=== PATIENT | female | born 1995 | race Caucasian/White ===

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

== ENCOUNTER 2017-01-27 19:10 | Emergency (ER) | payer SELFPAY ==
[~2017-01-27] VITALS: Ht 152.4 cm; Wt 78.0 kg
[~2017-01-27 19:10] MED LIST changes: +FERR325T18 PO; -FERR325T20 PO
[2017-01-27] MEDS ORDERED: SODIUM CHLORIDE FLUSH 10ML SYR IVF ONE (19:30)
[2017-01-27] MEDS ORDERED: ONDANSETRON 2MG/ML, 2ML IVPush ONE (19:30)
[2017-01-27] MEDS ORDERED: MORPHINE SULFATE 4 MG/ML, 1ML IVPush PRN (19:30)
[2017-01-27 19:47] LABS: HEMATOCRIT 37.2 % (34.6-47.8); HEMOGLOBIN 11.7 g/dL (11.7-16.4); WHITE BLOOD COUNT 6.6 x10^3/uL (4.5-13.2)
[2017-01-27 19:56] LABS: BLOOD UREA NITROGEN 8 mg/dL (7-18)
[2017-01-27 20:02] LABS: IS PT STATUS REG ER OR PRE ER? YES
[2017-01-27] MEDS ORDERED: KETOROLAC 30 MG/1 ML IVPush ONE (20:30)
[2017-01-27] MEDS ORDERED: ENOXAPARIN 60 MG/0.6 ML ONE (20:41)
[2017-01-27] MEDS ORDERED: ENOXAPARIN 80 MG/0.8 ML ONE (20:52)
[2017-01-27] MEDS ORDERED: KETOROLAC 30 MG/1 ML IM ONE (21:00)
[2017-01-27] MEDS ORDERED: ENOXAPARIN 80 MG/0.8 ML SQ ONE (21:30)
[2017-01-27 21:40] VITALS: BP 109/62
== END 2017-01-27 21:42 | disposition home or self-care (01) ==
LOC: ED 21:33
DX: R07.89 Other chest pain (principal); G43.909 Migraine, unspecified, not intractable, without status migrainosus
CPT/HCPCS: 36415; 71010; 80048; 82040; 83880; 84484; 84703; 85025; 85610; 96372; 99285; J1650

== ENCOUNTER 2017-05-29 16:30 | Emergency (ER) | payer OTHER ==
[~2017-05-29] VITALS: Ht 152.4 cm; Wt 76.9 kg
[~2017-05-29 16:30] MED LIST changes: +WARF-36 PO; -WARF5TAB7 PO
[2017-05-29 16:32] VITALS: BP 130/80
[2017-05-29] MEDS ORDERED: DIAZEPAM 5 MG TABLET PO ONE ×2 (17:30→18:00)
[2017-05-29] MEDS ORDERED: PROMETHAZINE 25 MG/ML, 1ML IM ONE (17:30)
[2017-05-29] MEDS ORDERED: DIPHENHYDRAMINE 50 MG/ML, 1ML IVPush ONE (17:30)
[2017-05-29] MEDS ORDERED: PROMETHAZINE 25 MG/ML, 1ML ONE (17:46)
[2017-05-29] MEDS ORDERED: DIAZEPAM 5 MG TABLET ONE (17:46)
[2017-05-29] MEDS ORDERED: CYCL-259 PO (17:57)
[2017-05-29] MEDS ORDERED: WARF-36 PO (17:57)
[2017-05-29] MEDS ORDERED: PROCHLORPERAZINE 5 MG/ML, 2ML IVPush ONE (18:00)
[2017-05-29] MEDS ORDERED: SODIUM CHLORIDE 0.9% 1,000ML IVBOLUS ONE (18:00)
[2017-05-29 18:23] LABS: INTERNATIONAL NORMALIZED RATIO 1.17 (0.93-1.1)
[2017-05-29] MEDS ORDERED: SODIUM CHLORIDE FLUSH 10ML SYR IVF ONE (18:30)
== END 2017-05-29 20:24 | disposition home or self-care (01) ==
LOC: ED 19:15
DX: G44.219 Episodic tension-type headache, not intractable (principal); D68.61 Antiphospholipid syndrome; G43.909 Migraine, unspecified, not intractable, without status migrainosus; J45.909 Unspecified asthma, uncomplicated; Z86.718 Personal history of other venous thrombosis and embolism
CPT/HCPCS: 36415; 85610; 96372; 99283; J2550

== ENCOUNTER 2017-06-20 16:25 | Emergency (ER) | payer OTHER ==
[~2017-06-20] VITALS: Ht 152.4 cm; Wt 76.2 kg
[~2017-06-20 16:25] MED LIST changes: +CYCL-259 PO; +WARF7.5T46 PO; -WARF7.5T6 PO
[2017-06-20] MEDS ORDERED: SODIUM CHLORIDE FLUSH 10ML SYR IVF ONE (17:00)
[2017-06-20] MEDS ORDERED: SODIUM CHLORIDE 0.9% 1,000ML IVBOLUS ONE (17:00)
[2017-06-20 17:17] LABS: BASOPHILS # (AUTO) 0.03 x10^3/uL (0-0.3); BASOPHILS % (AUTO) 1 % (0-1); EOSINOPHILS # (AUTO) 0.13 x10^3/uL (0-0.8); EOSINOPHILS % (AUTO) 2 % (1-7); LYMPHOCYTES # (AUTO) 1.85 x10^3/uL (1-6.1); LYMPHOCYTES % (AUTO) 29 % (22-44); MD NO; MEAN CORPUSCULAR HEMOGLOBIN 19.8 pg (27.0-34.8); MEAN CORPUSCULAR HGB CONC 30.8 g/dL (32.4-35.8); MEAN CORPUSCULAR VOLUME 64.3 fL (80-100); MEAN PLATELET VOLUME 9.2 fL (7.4-10.4); MONOCYTES # (AUTO) 0.54 x10^3/uL (0-1.4); MONOCYTES % (AUTO) 9 % (2-9); NEUTROPHILS # (AUTO) 3.85 x10^3/uL (1.8-8.0); NEUTROPHILS % (AUTO) 60 % (42-75); PLATELET COUNT 201 x10^3/uL (130-400); RED BLOOD COUNT 4.48 x10^6/uL (3.82-5.3); RED CELL DISTRIBUTION WIDTH 19.8 % (9.6-15.2)
[2017-06-20 17:27] LABS: INTERNATIONAL NORMALIZED RATIO 1.6 (0.93-1.1); PROTHROMBIN TIME 16.5 Seconds (9.6-11.5)
[2017-06-20 17:31] LABS: ALANINE AMINOTRANSFERASE 34 U/L (12-78); ALBUMIN 3.8 g/dL (3.4-5.0); ANION GAP 7 mmol/L (5-15); CHLORIDE 107 mmol/L (98-107)
[2017-06-20 17:35] LABS: ALKALINE PHOSPHATASE 71 U/L (45-117); BILIRUBIN,TOTAL 0.4 mg/dL (0.2-1.0); TOTAL PROTEIN 8.1 g/dL (6.4-8.2); TROPONIN I < 0.015 ng/mL (0.000-0.045)
[2017-06-20] MEDS ORDERED: OMNIPAQUE 350 MG/ML, 100ML BOTTLE ONE (18:14)
[2017-06-20 19:18] VITALS: BP 105/69
== END 2017-06-20 19:44 | disposition home or self-care (01) ==
LOC: ED 17:42
DX: R07.89 Other chest pain (principal); I10 Essential (primary) hypertension; E11.9 Type 2 diabetes mellitus without complications; J45.909 Unspecified asthma, uncomplicated; Z79.01 Long term (current) use of anticoagulants; Z86.718 Personal history of other venous thrombosis and embolism
CPT/HCPCS: 36415; 71275; 80053; 83880; 84484; 84703; 85025; 85610; 85730; 93005; 99285; J7030; Q9967; 96360

== ENCOUNTER 2017-12-15 15:53 | Emergency (ER) | payer OTHER ==
[~2017-12-15] VITALS: Ht 152.4 cm; Wt 72.0 kg
[2017-12-15 16:27] LABS: MEAN CORPUSCULAR HEMOGLOBIN 18.4 pg (27.0-34.8); MEAN CORPUSCULAR HGB CONC 30.2 g/dL (32.4-35.8); MEAN CORPUSCULAR VOLUME 60.8 fL (80-100); MEAN PLATELET VOLUME 10.3 fL (7.4-10.4); PLATELET COUNT 186 x10^3/uL (130-400); RED BLOOD COUNT 4.74 x10^6/uL (3.82-5.3); RED CELL DISTRIBUTION WIDTH 21.4 % (9.6-15.2)
[2017-12-15] MEDS ORDERED: ASPIRIN 81 MG TABLET CHEW ONE (16:28)
[2017-12-15] MEDS ORDERED: HYDROcodone/APAP 5/325 TABLET ONE (16:29)
[2017-12-15] MEDS ORDERED: ASPIRIN 81 MG TABLET CHEW PO ONE (16:30)
[2017-12-15] MEDS ORDERED: HYDROcodone/APAP 5/325 TABLET PO ONE (16:30)
[2017-12-15 16:32] LABS: INTERNATIONAL NORMALIZED RATIO 1.39 (0.93-1.1); PROTHROMBIN TIME 14.2 Seconds (9.6-11.5)
[2017-12-15 16:36] LABS: ALBUMIN 4.2 g/dL (3.4-5.0); ANION GAP 8 mmol/L (5-15); CALCIUM 8.7 mg/dL (8.5-10.1); CHLORIDE 110 mmol/L (98-107); CREATININE 0.62 mg/dL (0.55-1.02)
[2017-12-15 16:40] LABS: TROPONIN I < 0.015 ng/mL (0.000-0.045)
[2017-12-15 16:54] LABS: ANISOCYTOSIS 1+; BASOPHILS # (AUTO) 0.04 x10^3/uL (0-0.3); BASOPHILS % (AUTO) 1 % (0-1); EOSINOPHILS % (AUTO) 3 % (1-7); HYPOCHROMIA 1+; LYMPHOCYTES # (AUTO) 2.02 x10^3/uL (1-6.1); LYMPHOCYTES % (AUTO) 29 % (22-44); MD MORPH REVIEW ONLY; MICROCYTOSIS 1+; MONOCYTES # (AUTO) 0.37 x10^3/uL (0-1.4); MONOCYTES % (AUTO) 5 % (2-9); NEUTROPHILS # (AUTO) 4.36 x10^3/uL (1.8-8.0); NEUTROPHILS % (AUTO) 62 % (42-75); OVALOCYTES 1+; POLYCHROMASIA 1+
[2017-12-15 16:55] LABS: <PLATELET ESTIMATE> ADEQUATE; LARGE PLATELETS 1+
[2017-12-15 17:25] VITALS: BP 116/68
== END 2017-12-15 18:36 | disposition home or self-care (01) ==
LOC: ED 16:00
DX: R07.2 Precordial pain (principal); I10 Essential (primary) hypertension; E11.9 Type 2 diabetes mellitus without complications; G43.909 Migraine, unspecified, not intractable, without status migrainosus; Z86.718 Personal history of other venous thrombosis and embolism
CPT/HCPCS: 36415; 80048; 82040; 83880; 84484; 85025; 85379; 85610; 93005; 99285

== ENCOUNTER 2018-02-09 06:23 | Emergency (ER) | payer OTHER ==
[~2018-02-09] VITALS: Ht 152.4 cm; Wt 68.6 kg
[~2018-02-09 06:23] MED LIST changes: +WARF2.5T32 PO; -WARF2.5T73 PO
[2018-02-09] MEDS ORDERED: HYDROcodone/APAP 5/325 TABLET ONE (07:00)
[2018-02-09] MEDS ORDERED: ONDANSETRON ODT 4 MG ONE (07:00)
[2018-02-09] MEDS ORDERED: ONDANSETRON ODT 4 MG PO ONE (07:00)
[2018-02-09] MEDS ORDERED: HYDROcodone/APAP 5/325 TABLET PO ONE (07:00)
[2018-02-09 07:13] LABS: MEAN CORPUSCULAR HEMOGLOBIN 20.8 pg (27.0-34.8); MEAN CORPUSCULAR HGB CONC 31.1 g/dL (32.4-35.8); MEAN CORPUSCULAR VOLUME 66.8 fL (80-100); MEAN PLATELET VOLUME 8.2 fL (7.4-10.4); PLATELET COUNT 256 x10^3/uL (130-400); RED CELL DISTRIBUTION WIDTH 30.2 % (9.6-15.2)
[2018-02-09 07:24] LABS: ALBUMIN 3.7 g/dL (3.4-5.0); ANION GAP 8 mmol/L (5-15); CALCIUM 9.1 mg/dL (8.5-10.1); CHLORIDE 102 mmol/L (98-107)
[2018-02-09 07:25] LABS: MICROSCOPIC NOT IND
[2018-02-09 07:27] LABS: CULTURE INDICATED? NO
[2018-02-09 07:28] LABS: INTERNATIONAL NORMALIZED RATIO 1.26 (0.93-1.1); PROTHROMBIN TIME 13.2 Seconds (9.6-11.5)
[2018-02-09 07:29] LABS: MD YES
[2018-02-09 07:30] LABS: ALANINE AMINOTRANSFERASE 23 U/L (12-78); ALKALINE PHOSPHATASE 86 U/L (45-117); BILIRUBIN,TOTAL 0.6 mg/dL (0.2-1.0); CREATININE 0.57 mg/dL (0.55-1.02); TOTAL PROTEIN 8.5 g/dL (6.4-8.2)
[2018-02-09 07:32] LABS: BASOS% (MANUAL) 1 % (0-1); LYMPH#(MANUAL) 1.25 x10^3/uL (1-6.1); LYMPHS% (MANUAL) 13 % (22-44); MONOS% (MANUAL) 1 % (2-9); SEG#(MANUAL) 8.16 x10^3/uL (1.8-8); SEGS% (MANUAL) 85 % (42-75)
[2018-02-09 07:33] LABS: <PLATELET ESTIMATE> ADEQUATE; <PLT MORPHOLOGY> NORMAL PLT MORPH; ANISOCYTOSIS 1+; HYPOCHROMIA 1+; MICROCYTOSIS 2+; OVALOCYTES 1+; POLYCHROMASIA 1+
[2018-02-09 08:39] VITALS: BP 112/82
== END 2018-02-09 08:50 | disposition home or self-care (01) ==
LOC: ED 07:32
DX: N83.292 Other ovarian cyst, left side (principal); N83.291 Other ovarian cyst, right side; R11.2 Nausea with vomiting, unspecified; E11.9 Type 2 diabetes mellitus without complications; I10 Essential (primary) hypertension; G43.909 Migraine, unspecified, not intractable, without status migrainosus; J45.909 Unspecified asthma, uncomplicated; Z86.718 Personal history of other venous thrombosis and embolism
CPT/HCPCS: 36415; 76700; 76830; 80053; 81003; 83690; 84703; 85025; 85610; 99284; Q0162

== ENCOUNTER 2018-07-26 14:28 | Emergency (ER) | payer SELFPAY ==
[~2018-07-26] VITALS: Ht 152.4 cm; Wt 78.7 kg
[2018-07-26 15:15] LABS: INTERNATIONAL NORMALIZED RATIO 1.89 (0.93-1.1); PROTHROMBIN TIME 19.4 Seconds (9.6-11.5)
[2018-07-26 15:16] LABS: MEAN CORPUSCULAR HEMOGLOBIN 20.9 pg (27.0-34.8); MEAN CORPUSCULAR HGB CONC 30.7 g/dL (32.4-35.8); MEAN CORPUSCULAR VOLUME 68.2 fL (80-100); MEAN PLATELET VOLUME 9.2 fL (7.4-10.4); PLATELET COUNT 270 x10^3/uL (130-400); RED BLOOD COUNT 5.49 x10^6/uL (3.82-5.3); RED CELL DISTRIBUTION WIDTH 20.6 % (9.6-15.2)
[2018-07-26 15:17] LABS: ALANINE AMINOTRANSFERASE 30 U/L (12-78); ANION GAP 8 mmol/L (5-15); CALCIUM 8.6 mg/dL (8.5-10.1); CHLORIDE 107 mmol/L (98-107); CREATININE 0.68 mg/dL (0.55-1.02)
[2018-07-26 15:22] LABS: ALKALINE PHOSPHATASE 69 U/L (45-117); BILIRUBIN,TOTAL 0.5 mg/dL (0.2-1.0); FREE T4 (FREE THYROXINE) 0.97 ng/dL (0.76-1.46); TROPONIN I < 0.015 ng/mL (0.000-0.045)
[2018-07-26 16:12] LABS: MD YES
[2018-07-26 16:24] LABS: EOS#(MANUAL) 0.06 x10^3/uL (0.0-0.4); EOS% (MANUAL) 1 % (1-7); LYMPH#(MANUAL) 2.05 x10^3/uL (1-3.4); LYMPHS% (MANUAL) 33 % (22-44); MONOS% (MANUAL) 8 % (2-9); REACTIVE LYMPHS # (MANUAL) 0.25 x10^3/uL (0-0); REACTIVE LYMPHS % (MANUAL) 4 % (0-0); SEG#(MANUAL) 3.35 x10^3/uL (1.8-6.8); SEGS% (MANUAL) 54 % (42-75)
[2018-07-26 16:25] LABS: <PLATELET ESTIMATE> ADEQUATE; ANISOCYTOSIS 1+; HYPOCHROMIA 1+; LARGE PLATELETS 1+; MICROCYTOSIS 2+; POLYCHROMASIA 1+
[2018-07-26 16:27] LABS: OVALOCYTES 1+
--- NOTE | 2018-07-26 18:11 | NUR ---
patient arrives with feeling like her heart is racing since last wednesday. she has no cardiac histry. denies hypertion. she has antiphospholipid syndrome and takes warfain. patient is in bed, on monitor, rails up.
[2018-07-26 18:34] VITALS: BP 128/78
--- NOTE | 2018-07-26 18:34 | NUR ---
patient to be discharged. she is aox4, here driving. states feeling improved. discharge teaching reviewed.
== END 2018-07-26 18:53 | disposition home or self-care (01) ==
LOC: ED 18:47
DX: F41.1 Generalized anxiety disorder (principal); R00.2 Palpitations; E11.9 Type 2 diabetes mellitus without complications; I10 Essential (primary) hypertension; D68.61 Antiphospholipid syndrome; Z86.718 Personal history of other venous thrombosis and embolism; Z90.89 Acquired absence of other organs
CPT/HCPCS: 36415; 71045; 80053; 84439; 84443; 84484; 84703; 85025; 85610; 93005; 99284

== ENCOUNTER 2019-08-06 10:04 | Emergency (ER) | payer OTHER ==
[~2019-08-06] VITALS: Ht 152.4 cm; Wt 86.6 kg
--- NOTE | 2019-08-06 10:50 | NUR ---
THIS IS A 24 YO FEMALE WHO PRESENTS TO THE ER C/O LLQ PAIN X 5 DAYS WITH NAUSEA. PT DENIES ANY VOMITING OR DIARRHEA. PT ALSO C/O LEFT SHOULDER PAIN WITH MOVEMENT. ZACHARY WALLACE HAS BEEN TO BEDSIDE FOR EVAL. PT AO X 4. SKIN WARM AND DRY. RESP EVEN AND UNLABORED. CALL LIGHT WITHIN REACH.
[2019-08-06] MEDS ORDERED: ONDANSETRON 2MG/ML, 2ML IVPush ONE (11:00)
[2019-08-06] MEDS ORDERED: MORPHINE SULFATE 4 MG/ML, 1ML IVPush PRN (11:00)
[2019-08-06] MEDS ORDERED: SODIUM CHLORIDE FLUSH 10ML SYR IVF ONE (11:00)
--- NOTE | 2019-08-06 11:00 | NUR ---
PT TO US AT THIS TIME VIA SONA.
[2019-08-06 11:04] LABS: BASOPHILS # (AUTO) 0.03 x10^3/uL (0-0.1); BASOPHILS % (AUTO) 0 % (0-1); EOSINOPHILS # (AUTO) 0.14 x10^3/uL (0-0.4); EOSINOPHILS % (AUTO) 2 % (1-7); LYMPHOCYTES # (AUTO) 2.04 x10^3/uL (1-3.4); LYMPHOCYTES % (AUTO) 28 % (22-44); MD NO; MEAN CORPUSCULAR HGB CONC 31.7 g/dL (32.4-35.8); MEAN CORPUSCULAR VOLUME 72.6 fL (80-100); MEAN PLATELET VOLUME 10.6 fL (7.4-10.4); MONOCYTES # (AUTO) 0.39 x10^3/uL (0.2-0.8); MONOCYTES % (AUTO) 5 % (2-9); NEUTROPHILS # (AUTO) 4.66 x10^3/uL (1.8-6.8); NEUTROPHILS % (AUTO) 64 % (42-75); PLATELET COUNT 239 x10^3/uL (130-400); RED BLOOD COUNT 5.63 x10^6/uL (3.82-5.3); RED CELL DISTRIBUTION WIDTH 19.7 % (9.6-15.2)
[2019-08-06] MEDS ORDERED: ONDANSETRON 2MG/ML, 2ML ONE (11:11)
[2019-08-06] MEDS ORDERED: MORPHINE SULFATE 4 MG/ML, 1ML ONE (11:11)
[2019-08-06 11:12] LABS: INTERNATIONAL NORMALIZED RATIO 1.1 (0.93-1.1); PROTHROMBIN TIME 11.7 Seconds (9.6-11.5)
[2019-08-06 11:15] LABS: ALBUMIN 3.8 g/dL (3.4-5.0); ANION GAP 11 mmol/L (5-15); CALCIUM 9.1 mg/dL (8.5-10.1); CHLORIDE 110 mmol/L (98-107); CREATININE 0.64 mg/dL (0.55-1.02)
--- NOTE | 2019-08-06 11:29 | NUR ---
PT MEDICATED ORDERED FOR 09/24 ABD PAIN. PT AWARE WE NEED URINE SAMPLE. PT STATES SHE CANNOT GO AT THIS TIME. WILL WAIT FOR IVF TO INFUSE AND ATTEMPT AFTER THAT. AT BEDSIDE. PT ON CONT BP AND SPO2 MONITORS. CALL LIGHT WITHIN REACH. WILL CONT TO MONITOR PT.
[2019-08-06] MEDS ORDERED: SODIUM CHLORIDE 0.9% 1,000ML IVBOLUS ONE (11:30)
--- NOTE | 2019-08-06 12:01 | NUR ---
PT UP TO RESTROOM. STEADY UPON AMBULATION TO RESTROOM AND BACK TO [facility]. PT REPORTS PAIN IS ALMOST RESOLVED AT THIS TIME. URINE SAMPLE OBTAINED AND SENT TO LAB. PT ON CONT BP, CARDIAC AND O2 MONITORS. CALL LIGHT WITHIN REACH. WILL CONT TO MONITOR PT.
[2019-08-06 12:11] LABS: MICROSCOPIC AUTO
--- NOTE | 2019-08-06 12:40 | NUR ---
ZACHARY WALLACE AT BEDSIDE FOR RECHECK/EXPLANATION OF RESULTS. PT RESTING ON GURNEY. NO ACUTE DISTRESS NOTED AT THIS TIME. PT AO X 4. SKIN PWD. RESP EVEN AND UNLABORED. CALL LIGHT WITHIN REACH. WILL CONT TO MONITOR PT.
[2019-08-06] MEDS ORDERED: NITROFURANTOIN (MACROBID) 100 MG CAPSULE ONE (13:12)
[2019-08-06 13:26] VITALS: BP 107/61
[2019-08-06] MEDS ORDERED: NITROFURANTOIN (MACROBID) 100 MG CAPSULE PO ONE (13:30)
== END 2019-08-06 13:56 | disposition home or self-care (01) ==
LOC: ED 10:24
DX: N30.00 Acute cystitis without hematuria (principal); I10 Essential (primary) hypertension; E11.9 Type 2 diabetes mellitus without complications; J45.909 Unspecified asthma, uncomplicated; Z86.718 Personal history of other venous thrombosis and embolism; Z90.89 Acquired absence of other organs
CPT/HCPCS: 36415; 76830; 80048; 81001; 82040; 84703; 85025; 85610; 85730; 87086; 96374; 96375; 99284; J2270; J2405; J7030

== ENCOUNTER 2019-08-07 18:45 | Emergency (ER) | payer OTHER ==
[~2019-08-07] VITALS: Ht 152.4 cm; Wt 86.0 kg
[2019-08-07] MEDS ORDERED: MORPHINE SULFATE 4 MG/ML, 1ML ONE ×2 (20:17→21:37)
[2019-08-07] MEDS ORDERED: ONDANSETRON 2MG/ML, 2ML ONE (20:18)
[2019-08-07 20:23] LABS: BASOPHILS # (AUTO) 0.01 x10^3/uL (0-0.1); BASOPHILS % (AUTO) 0 % (0-1); EOSINOPHILS # (AUTO) 0.04 x10^3/uL (0-0.4); EOSINOPHILS % (AUTO) 0 % (1-7); LYMPHOCYTES # (AUTO) 1.64 x10^3/uL (1-3.4); LYMPHOCYTES % (AUTO) 17 % (22-44); MD NO; MEAN CORPUSCULAR HEMOGLOBIN 22.9 pg (27.0-34.8); MEAN CORPUSCULAR HGB CONC 31.7 g/dL (32.4-35.8); MEAN CORPUSCULAR VOLUME 72.4 fL (80-100); MEAN PLATELET VOLUME 10.3 fL (7.4-10.4); MONOCYTES # (AUTO) 0.35 x10^3/uL (0.2-0.8); MONOCYTES % (AUTO) 4 % (2-9); NEUTROPHILS # (AUTO) 7.36 x10^3/uL (1.8-6.8); NEUTROPHILS % (AUTO) 78 % (42-75); PLATELET COUNT 216 x10^3/uL (130-400); RED BLOOD COUNT 5.71 x10^6/uL (3.82-5.3); RED CELL DISTRIBUTION WIDTH 19.5 % (9.6-15.2)
[2019-08-07] MEDS ORDERED: ONDANSETRON 2MG/ML, 2ML IVPush ONE (20:30)
[2019-08-07] MEDS ORDERED: SODIUM CHLORIDE FLUSH 10ML SYR IVF ONE (20:30)
--- NOTE | 2019-08-07 20:30 | NUR ---
IV INSERTED AND PT MEDICATED FOR LOW BACK PAIN PER ORDERS. PT UNDERSTANDS NEED FOR URINE SAMPLE, STATES SHE DOESN'T WANT STRAIGHT CATH.
[2019-08-07] MEDS: MORPHINE SULFATE 4 MG/ML, 1ML IVPush PRN ×2 (20:31→21:42)
[2019-08-07 20:39] LABS: ALANINE AMINOTRANSFERASE 38 U/L (12-78); ALBUMIN 4.1 g/dL (3.4-5.0); ANION GAP 8 mmol/L (5-15); CALCIUM 9.5 mg/dL (8.5-10.1); CHLORIDE 108 mmol/L (98-107); CREATININE 0.65 mg/dL (0.55-1.02)
[2019-08-07 20:41] LABS: ALKALINE PHOSPHATASE 96 U/L (45-117); BILIRUBIN,TOTAL 0.7 mg/dL (0.2-1.0); TOTAL PROTEIN 8.8 g/dL (6.4-8.2)
--- NOTE | 2019-08-07 21:01 | NUR ---
PT REFUSED STRAIGHT CATH. AMBULATED TO BR WITHOUT DIFFICULTY. INSTRUCTED ON CLEAN CATCH URINE.
--- NOTE | 2019-08-07 21:20 | NUR ---
TASK RN: URINE SAMPLE COLLECTED AND SENT TO LAB.
[2019-08-07 21:30] LABS: MICROSCOPIC INDICATED
--- NOTE | 2019-08-07 21:45 | NUR ---
PT MEDICATED WITH ANOTHER DOSE OF MORPHINE FOR LOWER BACK PAIN. RV'WD UA RESULTS AND PLAN FOR CT WITH PT.
[2019-08-07] MEDS ORDERED: SODIUM CHLORIDE 0.9% 1,000ML IVBOLUS ONE (22:30)
[2019-08-07 23:32] VITALS: BP 118/63
== END 2019-08-07 23:50 ==
LOC: ED 23:40
DX: M54.5 Low back pain (principal); G89.29 Other chronic pain; E11.9 Type 2 diabetes mellitus without complications; J45.909 Unspecified asthma, uncomplicated; G43.909 Migraine, unspecified, not intractable, without status migrainosus; Z86.718 Personal history of other venous thrombosis and embolism
CPT/HCPCS: 36415; 74176; 80053; 81001; 85025; 87086; 96374; 96375; 96376; 99285; J2270; J2405; J7030

== ENCOUNTER 2020-11-12 22:03 | Emergency (ER) | payer OTHER ==
[~2020-11-12] VITALS: Ht 152.4 cm; Wt 91.5 kg
[2020-11-12 23:28] VITALS: BP 117/60
== END 2020-11-13 02:09 | disposition home or self-care (01) ==
LOC: ED 22:08
DX: J20.8 Acute bronchitis due to other specified organisms (principal); R00.0 Tachycardia, unspecified; G43.909 Migraine, unspecified, not intractable, without status migrainosus; J45.909 Unspecified asthma, uncomplicated; Z86.718 Personal history of other venous thrombosis and embolism
CPT/HCPCS: 36415; 71045; 80048; 82040; 85025; 93005; 94640; 96360; 99285; J7030